=== PATIENT | female | born 1965 ===

== ENCOUNTER 2018-09-15 13:47 | Inpatient (IN) | payer OTHER ==
[~2018-09-15] VITALS: Ht 152.4 cm; Wt 59.0 kg
[~2018-09-15 13:47] MED LIST: CELEBREX200MG PO
[2018-09-30] MEDS ORDERED: GABAPENTIN800 MG PO (16:32)
[2018-09-30] MEDS ORDERED: SULINDAC200 MG PO (16:32)
[2018-09-30] MEDS ORDERED: CRESTOR5 MG PO (16:33)
[2018-09-30] MEDS ORDERED: ASA81 MG PO (16:33)
[2018-09-30] MEDS ORDERED: LEVO-T75 MCG PO (16:33)
[2018-10-08] MEDS ORDERED: KETO10TA2 PO (13:02)
[2018-10-08] MEDS ORDERED: PERCOCET 5-3251 EACH PO (13:02)
[2018-10-08] MEDS ORDERED: RECTICARE30 GM TOP (13:03)
== END 2018-10-08 14:55 | disposition home or self-care (01) | DRG 748 ==
LOC: SURG 10-07 06:26 → O/R 10-07 06:26 → RECOVERY 10-07 07:00 → SURG 10-07 13:43
PROVIDERS: Surgery
PROC: 06BY0ZC Excision of Hemorrhoidal Plexus, Open Approach (ICD-10-PCS; 2018-10-07)
PROC: 3E0T3BZ Introduction of Anesthetic Agent into Peripheral Nerves and Plexi, Percutaneous Approach (ICD-10-PCS; 2018-10-07)
PROC: 0JQC0ZZ Repair Pelvic Region Subcutaneous Tissue and Fascia, Open Approach (ICD-10-PCS; principal; 2018-10-07 07:00)
DX: N81.6 Rectocele (principal); K64.3 Fourth degree hemorrhoids

== ENCOUNTER → 2019-01-21 | Day surgery (SDC) | payer OTHER ==
[~2019-01-21] MED LIST changes: +ASA81 MG PO; +CRESTOR5 MG PO; +GABAPENTIN800 MG PO; +KETO10TA2 PO; +LEVO-T75 MCG PO; +PERCOCET 5-3251 EACH PO; +RECTICARE30 GM TOP; +SULINDAC200 MG PO
== END | disposition home or self-care (01) ==
LOC: ADM 01-19 14:30 → AMB-ENDOS 06:12
DX: N81.6 Rectocele (principal)